=== PATIENT | male | born 1985 | race Caucasian/White ===

== ENCOUNTER 2021-09-06 08:00 | Outpatient (CLI) | payer BC ==
[2021-09-06 11:45] LABS: BASOPHILS # (AUTO) 0.1 10^3/uL (0.0-0.1); BASOPHILS % (AUTO) 0.5 %; EOSINOPHILS # (AUTO) 0.2 10^3/uL (0.0-0.7); EOSINOPHILS % (AUTO) 1.8 %; HGB - HEMOGLOBIN 16.4 g/dL (14.0-18.0); LYMPHOCYTES # (AUTO) 1.7 10^3/uL (1.5-3.5); LYMPHOCYTES % (AUTO) 17.4 %; MEAN CORPUSCULAR HGB CONC 32.8 g/dL (32.0-36.0); MEAN CORPUSCULAR VOLUME 91.6 fL (80.0-94.0); MEAN PLATELET VOLUME 11.6 fL (7.4-11.4); MONOCYTES # (AUTO) 0.7 10^3/uL (0.0-1.0); NEUTROPHILS # (AUTO) 7.2 10^3/uL (1.5-6.6); NEUTROPHILS % (AUTO) 73.1 %; PLT - PLATELET COUNT 351 10^3/uL (130-450); RED BLOOD COUNT 5.46 10^6/uL (4.70-6.10); RED CELL DISTRIBUTION WIDTH 13.3 % (12.0-15.0); WHITE BLOOD COUNT 9.8 x10^3/uL (4.8-10.8)
[2021-09-06 12:02] LABS: ALBUMIN 4.8 g/dL (3.2-5.5); ALBUMIN/GLOBULIN RATIO 1.4 (1.0-2.2); ALKALINE PHOSPHATASE 72 IU/L (42-121); ALT ALANINE AMINOTRANSFERASE 22 IU/L (10-60); AST ASPARTATE AMINOTRANSFERASE 19 IU/L (10-42); BILIRUBIN,TOTAL 0.4 mg/dL (0.2-1.0); BUN - BLOOD UREA NITROGEN 11 mg/dL (6-20); CALCIUM 9.8 mg/dL (8.5-10.3); CARBON DIOXIDE - CO2 28 mmol/L (21-32); CHLORIDE 99 mmol/L (101-111); GFR - MDRD 86 (>89); GLUCOSE 92 mg/dL (70-100); POTASSIUM 4.1 mmol/L (3.5-5.0); SODIUM 136 mmol/L (135-145); TOTAL PROTEIN 8.2 g/dL (6.7-8.2)
[2021-09-06 12:14] LABS: THYROID STIMULATING HORMONE 0.35 uIU/mL (0.34-5.60)
[2021-09-06 12:44] LABS: CRP - C-REACTIVE PROTEIN < 1.0 mg/dL (0-1.0)
== END 2021-09-06 23:59 | disposition home or self-care (01) ==
LOC: LAB.N 08:00
PROVIDERS: ATTEND Family Medicine
DX: G58.9 Mononeuropathy, unspecified (principal); R53.1 Weakness
CPT/HCPCS: 36415; 80053; 84443; 85025; 85651; 86140

== ENCOUNTER 2021-12-21 11:46 | Emergency (ER) | payer BC ==
[2021-12-21] MEDS ORDERED: SODIUM CHLORIDE 0.9% 1,000 ML IV STA (13:38)
[2021-12-21] MEDS ORDERED: ONDANSETRON 4 MG/2 ML VIAL IVP STA (13:38)
[2021-12-21 14:33] VITALS: BP 114/75
--- NOTE | 2021-12-21 15:21 | ED Physician Documentation ---
PD HPI NVD - Stated complaint Stated Complaint: VOMITING - Chief complaint Chief Complaint: Abd Pain - History obtained from History obtained from: Patient - Additonal information Additional information: The patient comes to the emergency department chief complaint of nausea and vomiting since drinking heavily a few days ago. Patient states for last couple days he has not been able to hold anything down, and feels that he is getting dehydrated, as he has begun to notice cramps in his extremities. He does admit that his symptoms did seem to improve once he got here and he has been able to drink some water. The patient states that he has not had any diarrhea. No fevers or chills. No abdominal pain other than some cramping. Patient is otherwise healthy. He states he just wants to get hydrated so he can go back to work. No other complaints at this time. Review of Systems Ten Systems: 10 systems reviewed and negative Constitutional: reports: Reviewed and negative Eyes: reports: Reviewed and negative Ears: reports: Reviewed and negative Nose: reports: Reviewed and negative Throat: reports: Reviewed and negative Cardiac: reports: Reviewed and negative Respiratory: reports: Reviewed and negative GI: reports: Nausea, Vomiting : reports: Reviewed and negative Skin: reports: Reviewed and negative Musculoskeletal: reports: Reviewed and negative Neurologic: reports: Reviewed and negative Psychiatric: reports: Reviewed and negative Endocrine: reports: Reviewed and negative Immunocompromised: reports: Reviewed and negative PD PAST MEDICAL HISTORY - Past Surgical History Past Surgical History: No - Present Medications Home Medications: Ambulatory Orders Medication Instructions Recorded Confirmed Cephalexin [Keflex] 500 mg PO QID 7 Days capsule 07/23/14 Triamcinolone 0.1% Oint [Kenalog 1 gm TOP BID #2 tube 07/23/14 0.1% Oint] Ondansetron Odt [Zofran] 4 mg TL Q6H PRN #10 tablet 12/21/21 - Allergies Allergies/Adverse Reactions: Allergies Allergy/AdvReac Type Severity Reaction Status Date / Time No Known Drug Allergies Allergy Verified 12/21/21 12:12 - Social History Does the pt smoke?: Yes Smoking Status: Current every day smoker Does the pt drink ETOH?: Yes Does the pt have substance abuse?: Yes - Immunizations Immunizations are current?: Yes PD ED PE NORMAL - Vitals Vital signs reviewed: Yes - General General: Alert and oriented X 3, No acute distress, Well developed/nourished - HEENT HEENT: Atraumatic, PERRL, EOMI, Moist mucous membranes - Neck Neck: Supple, no meningeal sign - Cardiac Cardiac: RRR, No murmur, Strong equal pulses - Respiratory Respiratory: No respiratory distress, Clear bilaterally - Abdomen Abdomen: Soft, Non tender, Non distended - Derm Derm: Normal color, Warm and dry, No rash - Extremities Extremities: No deformity, No edema - Neuro Neuro: Alert and oriented X 3 - Psych Psych: Normal mood, Normal affect Results - Vitals Vitals: Vital Signs - 24 hr 12/21/21 12/21/21 12:08 14:32 Temperature 37.2 C Heart Rate 93 78 Respiratory 14 18 Rate Blood Pressure 124/108 H 114/75 O2 Saturation 96 98 Oxygen O2 Source Room air PD MEDICAL DECISION MAKING - ED course Complexity details: considered differential, d/w patient ED course: I did feel that set of electrolytes should be checked on the patient, but he declined labs. Explained to him that low potassium or sodium could be part responsible for his symptoms, but he states that he has to pay [id number] and he does not wish to pay for labs. He only wants hydration. The patient was given a liter fluid and a dose of Zofran, and was found to be feeling much better. I felt he was stable for discharge home. We have discussed the usual indications for return. Departure - Departure Disposition: 01 Home, Self Care Clinical Impression: Vomiting Qualifiers: Vomiting type: bilious vomiting Nausea presence: with nausea Qualified Code(s): R11.14 - Bilious vomiting Condition: Stable Instructions: ED Nausea Vomiting Prescriptions: Ondansetron Odt [Zofran] 4 mg TL Q6H PRN #10 tablet PRN Reason: Nausea / Vomiting Discharge Date/Time: 12/21/21 15:35
== END 2021-12-21 15:35 | disposition home or self-care (01) ==
LOC: ED 11:46
DX: R11.14 Bilious vomiting (principal); E86.0 Dehydration; F17.200 Nicotine dependence, unspecified, uncomplicated
CPT/HCPCS: 80053; 83690; 85025; 96361; 96374; 99282

== ENCOUNTER 2022-01-30 14:59 | Outpatient (CLI) | payer OTHER, BC ==
--- NOTE | 2022-01-30 16:35 | XRAY Report ---
PROCEDURE: Foot 3 View LT INDICATIONS: PUNCTURE WOUND LEFT FOOT TECHNIQUE: 3 views of the foot were acquired. COMPARISON: None FINDINGS: Bones: No fractures or dislocations. No suspicious bony lesions. Soft tissues: No tibiotalar joint effusion. Achilles tendon appears normal. IMPRESSION: No acute fracture. No osseous lesion. If symptoms and/or clinical suspicion for pathology continue, f urther assessment with repeat plain films, or advanced imaging (e.g., CT, MRI, or bone scan) is recom mended for further assessment. Reviewed by: Samia Mullen MD on 01/30/2022 4:34 PM PST Approved by: Samia Mullen MD on 01/30/2022 4:34 PM PST Station ID: [id number]
== END 2022-01-30 15:00 | disposition home or self-care (01) ==
LOC: DI.S 14:59
PROVIDERS: ATTEND Physician Assistant
DX: S91.332A Puncture wound without foreign body, left foot, initial encounter (principal)

== ENCOUNTER 2023-08-12 09:19 | Day surgery (SDC) | payer OTHER ==
[2023-08-12] MEDS: LACTATED RINGERS 1,000 ML IV ONE (09:22)
--- NOTE | 2023-08-12 10:06 | ANESTHESIA ---
Pre-Anesthesia VS, & Labs - Diagnosis DESIRES STERILIZATION - Procedure VASECTOMY Vital Signs: Temp Pulse Resp BP Pulse Ox O2 Flow Rate 36.3 C L 61 14 123/79 99 08/12/23 09:30 08/12/23 09:30 08/12/23 09:30 08/12/23 09:30 08/12/23 09:30 Height: 6 ft 1 in Weight (kg): 108 kg Body Mass Index: 31.4 BMI Classification: Obese - NPO >8 hours Home Medications and Allergies Home Medications: Ambulatory Orders No Known Home Medications 08/08/23 No Known Home Medications 08/08/23 Allergies/Adverse Reactions: Allergies Allergy/AdvReac Type Severity Reaction Status Date / Time No Known Drug Allergies Allergy Verified 08/12/23 09:39 Anes History & Medical History - Anesthetic History Anesthesia Complications: reports: No previous complications (DENTAL SEDATION ONLY) Family history of Anesthesia Complications: Denies - Medical History Cardiovascular: reports: Murmur (ACTIVE) Pulmonary: reports: None (1 PPD SMOKER) Gastrointestinal: reports: None Urinary: reports: None Musculoskeletal: reports: None Endocrine/Autoimmune: reports: None Skin: reports: None Smoking Status: Current every day smoker Psychosocial: reports: Alcohol (OCCASIONAL), Cannabis (OCCASIONAL) - Surgical History Orthopedic: reports: Other Results - EKG Results EKG Comparison: Reviewed EKG Exam General: Alert, Oriented x3 Dental: WNL Mouth Openin Fingerbreadth Neck Mobility: Normal Mallampati classification: II Thyromental Distance: 4-6 cm Respiratory: Lungs clear Cardiovascular: Regular rate Plan Anesthesia Type: General Consent for Procedure(s) Verified and Reviewed: Yes Code Status: Attempt Resuscitation ASA classification: 2-Mild systemic disease Is this case an emergency?: No
[2023-08-12] MEDS ORDERED: HYDROmorphone 0.5 MG/0.5 ML SYRINGE IVP PRN ×2 (10:07→10:35)
[2023-08-12] MEDS ORDERED: ONDANSETRON 4 MG/2 ML VIAL IVP PRN ×2 (10:07→10:35)
[2023-08-12] MEDS ORDERED: ePHEDrine 50 MG/ML VIAL IVP PRN ×2 (10:07→10:35)
[2023-08-12] MEDS ORDERED: MORPHINE 2 MG/ML CARPUJECT IVP PRN ×2 (10:07→10:35)
[2023-08-12] MEDS ORDERED: fentaNYL 100 MCG/2 ML VIAL IVP PRN ×2 (10:07→10:35)
[2023-08-12] MEDS ORDERED: NALOXONE 0.4 MG/ML VIAL IVP PRN ×2 (10:07→10:35)
[2023-08-12] MEDS ORDERED: ATROPINE ABBOJECT 1 MG/10 ML SYRINGE IVP PRN ×2 (10:07→10:35)
[2023-08-12] MEDS ORDERED: METOCLOPRAMIDE 10 MG/2 ML VIAL IVP PRN (10:07)
[2023-08-12] MEDS: LIDOCAINE-MPF 1% 30 ML VIAL SUBQ ONE (10:40)
[2023-08-12] MEDS ORDERED: LACTATED RINGERS 1,000 ML IV SCH ×2 (11:00)
[2023-08-12] MEDS: LACTATED RINGERS 600 ML IV ONE (11:14)
--- NOTE | 2023-08-12 11:22 | Discharge Plan ---
Discharge Plan Problem Reviewed?: Yes Disposition: 01 Home, Self Care Condition: Good Diet: Regular Activity Restrictions: Additional Comments (as instructed) Shower Restrictions: No Driving Restrictions: No Instruction Topics: Vasectomy No Scalpel No Smoking: If you smoke, Please STOP! Call for help.
--- NOTE | 2023-08-12 11:25 | OPERATIVE REPORT ---
Operative Report - General Procedure Date: 08/12/23 Planned Procedure: Bilateral vasectomy Pre-Op Diagnosis: Elective sterilization Procedure Performed: Bilateral no scalpel vasectomy Post Op Diagnosis: Elective sterilization - Procedure Note Primary Surgeon: Dominic Anesthesia Provider: REINALDO Molina Anesthesia Technique: General LMA Pathology: none Estimated Blood Loss (mL): 0 Findings: Routine vasectomy Complications: none - Other Other Information/Narrative: After informed consent obtained patient brought to the OR and laid in supine position. The patient was anesthetized per anesthesia protocols and then prepped and draped in usual sterile fashion. A formal timeout was performed reconfirming the patient, procedure and laterality He is vas deferens identified through his right hemiscrotum. 1% lidocaine was used as local. Using a sharp mosquito is scrotal tissue was dissected away and his vas sheath was grasped using a ring clamp. This was sharply incised and the vas was identified and pulled out. It was clamped on both sides and the intervening 1 cm segment was cauterized away. The ends were cauterized as well. The ends were suture-ligated with chromic suture and then the distal end was buried using a fascial interposition stitch using 3-0 chromic suture. There was no bleeding. His skin was closed using a 3-0 chromic horizontal mattress stitch. An identical procedure performed on the left side. Band-Aids were placed. This concluded the procedure and the patient tolerated the procedure well. All counts were correct. He will have a semen analysis performed in 3 months to confirm azoospermia.
[2023-08-12] MEDS ORDERED: HYDROcod/ACETAM 5/325 MG TABLET ONE (11:47)
[2023-08-12] MEDS: HYDROcod/ACETAM 5/325 MG TABLET PO PRN (11:47)
[2023-08-12 11:54] VITALS: BP 120/83; O2SAT 100
--- NOTE | 2023-08-12 13:57 | ANESTHESIA POST OP EVALUATION ---
Anesthesia Post Eval - Post Anesthesia Eval Vitals: Last Vital Signs Temp 36.6 C 08/12/23 11:33 Pulse 53 L 08/12/23 11:45 Resp 14 08/12/23 11:45 BP 120/83 H 08/12/23 11:45 Pulse Ox 100 08/12/23 11:45 O2 Flow Rate CV Function Including HR & BP: Stable Pain Control: Satisfactory Nausea & Vomiting: Negative Mental Status: Baseline Respiratory Status: Airway Patent Hydration Status: Satisfactory Anesthesia Complications: None
== END 2023-08-12 09:20 | disposition home or self-care (01) ==
LOC: OR 09:19 → SDS 09:20
PROVIDERS: ATTEND Urology
DX: Z30.2 Encounter for sterilization (principal); E66.9 Obesity, unspecified; Z68.31 Body mass index [BMI] 31.0-31.9, adult; F17.200 Nicotine dependence, unspecified, uncomplicated
CPT/HCPCS: 55250; A9270; J7120